=== PATIENT | female | born 1965 | race Caucasian/White ===

== ENCOUNTER 2018-03-08 16:52 | Inpatient (IN) | payer OTHER ==
[~2018-03-08] VITALS: Ht 115 cm; Wt 56.7 kg
--- NOTE | ~2018-03-08 | PROC ---
[address] [address] PROCEDURE REPORT Name: MARIA COHEN Room: [address] IN M.R.#: [id number] Admission: 03/08/18 Attend Phys: Mina Chase MD Discharge: Date of : 61 Report #: [id number] THIS REPORT FOR: //name// For GI report, please see the Provation report in Perceptive 7 content. By: 0646Medical Records Staff JOE /FABIOLA
[2018-03-08 17:11] VITALS: BP 201/143
--- NOTE | 2018-03-08 17:19 | NUR ---
PT STATES SHE CAN NOT URINATE AT THIS TIME DUE TO NOT HAVING DRANK ANYTHING FOR AWHILE
[2018-03-08 17:33] LABS: ABSOLUTE BASOPHILS 0.1 thou/uL (0.0-0.2); ABSOLUTE EOSINOPHILS 0.1 thou/uL (0.0-0.7); ABSOLUTE LYMPHOCYTES 1.6 thou/uL (0.8-5.3); ABSOLUTE MONOCYTES 0.8 thou/uL (0.0-1.2); ABSOLUTE NEUTROPHILS 10.6 thou/uL (1.6-8.1); BASOPHILS 0.6 %; EOSINOPHILS 0.7 %; HEMOGLOBIN 15.2 gm/dL (12.0-15.0); LYMPHOCYTES 12.2 %; MCH 29.3 pg (26.0-34.0); MCHC 33.8 g/dL (28.0-37.0); MCV 86.7 fL (80.0-100.0); MONOCYTES 5.8 %; MPV 7.6 fl. (7.2-11.1); NUCLEATED RBCS 0 /100WBC; PLATELET COUNT* 434 thou/uL (150-400); POLYS 80.7 %; RBC 5.19 mil/uL (4.20-5.00); WBC 13.1 thou/uL (4.0-11.0)
[2018-03-08 17:41] LABS: CREATININE 0.8 mg/dL (0.6-1.3); POTASSIUM 3.8 mmol/L (3.5-5.1)
[2018-03-08 17:45] LABS: ALBUMIN 3.3 g/dL (3.4-5.0); TOTAL BILIRUBIN 0.3 mg/dL (<0.1-1.0); TOTAL PROTEIN 7.9 g/dL (6.4-8.2)
[2018-03-08 19:02] LABS: URINE BILIRUBIN NEGATIVE (Negative); URINE BLOOD 1+ (Negative); URINE CLARITY CLEAR; URINE COLOR ORANGE; URINE GLUCOSE-RANDOM NEGATIVE (Negative); URINE KETONES NEGATIVE (Negative); URINE LEUKOCYTES-REFLEX NEGATIVE (Negative); URINE NITRITE-REFLEX NEGATIVE (Negative); URINE PROTEIN 2+ (Negative); URINE UROBILINOGEN 0.2 E.U./dl (0.2-1.0)
[2018-03-08 19:13] LABS: SQUAMOUS 4-10 Moderate /LPF (0-3)
[2018-03-08 19:14] LABS: BACTERIA-REFLEX None Seen /HPF (None Seen); MUCUS 0-3 Light strn/LPF (None Seen); URINE RBC 3-10 Few /HPF (0-2); URINE WBC-REFLEX 0-5 Rare /HPF (0-5)
[2018-03-08 19:15] LABS: CRYSTALS None Seen /LPF (None Seen); HYALINE CASTS 0-3 Few /LPF (None Seen)
[2018-03-08 20:10] LABS: AMP/METHAMP POSITIVE (Negative); BARBITURATES Negative (Negative); BENZODIAZEPINES Negative (Negative); COCAINE Negative (Negative); METHADONE Negative (Negative); OPIATES POSITIVE (Negative); PCP Negative (Negative); THC Negative (Negative)
[2018-03-08 20:47] VITALS: BP 186/119
[2018-03-09] VITALS (9 sets, daily range): BP systolic 127–151; BP diastolic 73–102
--- NOTE | 2018-03-09 03:55 | NUR ---
Patient rested in bed. No acute changes, patient did not show signs of distess. Patient did not complain of nausea or vomiting. GI to see patient, patient had high blood pressure. Doctor notified, prn med given, blood pressure return to with in normal limits. Call light with in reach, bed alarm on, fall precautions in place, hourly rounding observed.
[2018-03-09 04:56] LABS: ABSOLUTE EOSINOPHILS 0.2 thou/uL (0.0-0.7); ABSOLUTE LYMPHOCYTES 2.5 thou/uL (0.8-5.3); ABSOLUTE MONOCYTES 0.8 thou/uL (0.0-1.2); ABSOLUTE NEUTROPHILS 5.7 thou/uL (1.6-8.1); BASOPHILS 0.5 %; HEMATOCRIT 37.9 % (37.0-47.0); MCH 28.9 pg (26.0-34.0); MCHC 32.8 g/dL (28.0-37.0); MCV 88.1 fL (80.0-100.0); MONOCYTES 8.8 %; MPV 7.8 fl. (7.2-11.1); NUCLEATED RBCS 0 /100WBC; PLATELET COUNT* 368 thou/uL (150-400); POLYS 61.7 %; RDW-CV 13.1 % (10.5-14.5); WBC 9.2 thou/uL (4.0-11.0)
[2018-03-09 05:03] LABS: HEMOGLOBIN 12.4 gm/dL (12.0-15.0)
[2018-03-09 05:15] LABS: CALCIUM 8.6 mg/dL (8.5-10.1); CREATININE 0.7 mg/dL (0.6-1.3); POTASSIUM 4.2 mmol/L (3.5-5.1)
--- NOTE | 2018-03-09 08:20 | NUR ---
ASSUMED PT CARE AT 07, FULL ASSESMENT DONE CHARTED. PT A/O X4, C/O ABDOMINAL PAIN, REVIEWED WITH PT WHEN SHE CAN HAVE PRN MEDS. PTS BP ELEVATED, HYDRALAZINE GIVEN. PT STATES IN DEC SHE WAS PUT ON BP MEDS BUT STOPPED TAKING THEM WHEN SHE RAN OUT. PT STATES SHE HAS NOT HAD A BM IN "A LONG TIME". SHE REPORTS LOSS OF APITITE AND WEIGHT. WAITING ON GI CONSULT, PT ON CLEAR LIQUID DIET. PT USES CALL LIGHT APPROPRIALTY. FALL PRECATUIONS IN PLACE. WILL CONTINUE WITH PLAN OF CARE.
--- NOTE | 2018-03-09 16:59 | NUR ---
CM SPOKE TO THE PATIENT TO DISCUSS HOME SITUATION, DISCHARGE PLANNING, AND WHERE TO CALL REPORT. PATIENT ALERT, ORIENTED, AND INDEPENDENT WITH ADL'S. PATIENT USES 0 DME. PATIENT DOES NOT CURRENTLY HAVE INSURANCE. CM PROVIDED PATIENT WITH A COMMUNITY RESOURCE LIST, SAFETY NET CLINIC LIST, AND A PRESCRIPTION ASSISTANCE CARD. CM WILL REMAIN AVAILABLE TO ASSIST AND FOLLOW NEEDED.
--- NOTE | 2018-03-09 23:09 | NUR ---
REPORT GIVEN TO EHSAN. PATIENT TRANFER OFF FLOOR. NO ACUTE CHANGES, PATIENT DID NOT SHOW SIGNS OF DISTRESS.
--- NOTE | 2018-03-09 23:19 | NUR ---
PATIENT TRANSFERRED FROM TELE TO ROOM 106 IN STABLE CONDITION AT 2245. ALERT AND ORIENTED X4. DENIES ANY NEEDS AT THIS TIME. IVF INFUSING. AGREE WITH PREVIOUS RN REASSESSMENT OF PATIENT. VITALS STABLE. CONTINUE TO MONITOR.
[2018-03-10 04:47] LABS: ABSOLUTE BASOPHILS 0.1 thou/uL (0.0-0.2); ABSOLUTE EOSINOPHILS 0.2 thou/uL (0.0-0.7); ABSOLUTE LYMPHOCYTES 2.5 thou/uL (0.8-5.3); ABSOLUTE MONOCYTES 0.6 thou/uL (0.0-1.2); ABSOLUTE NEUTROPHILS 3.2 thou/uL (1.6-8.1); EOSINOPHILS 3.4 %; HEMATOCRIT 34.6 % (37.0-47.0); HEMOGLOBIN 11.3 gm/dL (12.0-15.0); LYMPHOCYTES 37.5 %; MCH 28.9 pg (26.0-34.0); MCHC 32.8 g/dL (28.0-37.0); MONOCYTES 8.6 %; MPV 7.9 fl. (7.2-11.1); NUCLEATED RBCS 0 /100WBC; POLYS 49.5 %; RBC 3.93 mil/uL (4.20-5.00); RDW-CV 13.2 % (10.5-14.5); WBC 6.6 thou/uL (4.0-11.0)
[2018-03-10 04:59] LABS: PLATELET COUNT* 290 thou/uL (150-400)
[2018-03-10 05:03] LABS: ALBUMIN 2.2 g/dL (3.4-5.0); CALCIUM 8.6 mg/dL (8.5-10.1); CREATININE 0.7 mg/dL (0.6-1.3); POTASSIUM 4.2 mmol/L (3.5-5.1); TOTAL BILIRUBIN 0.2 mg/dL (<0.1-1.0); TOTAL PROTEIN 5.4 g/dL (6.4-8.2)
--- NOTE | 2018-03-10 05:47 | NUR ---
PATIENT ALERT AND ORIENTED X4. DENIED NEED FOR PAIN MEDICATION. TOLERATING DIET. UP AD SHAYLA. VITALS STABLE. WILL CONTINUE TO MONITOR.
[2018-03-10 08:40] VITALS: BP 194/115
--- NOTE | 2018-03-10 13:17 | S ---
[place] [address] SURGICAL PATH RPT PROCEDURE Name: MARIA COHEN Room: [address] IN M.R.#: [id number] Admission: 03/08/18 Date of : 61 Discharge: Report #: [id number] Path Case #: [id number] PATHOLOGY REPORT COLLECTION DATE: 03/09/2018 RECEIVED DATE: 03/09/2018 SUBMITTING PHYS: Dr. Silas Villavicencio OTHER PHYS: Dr. Mina Chase SPECIMEN(S) RECEIVED: A.Biopsy duodenal ulcer B.Biopsy gastric ulcer * * * * * * * * * * * * FINAL DIAGNOSIS: A. Biopsy duodenal ulcer: - Moderate nonspecific active duodenitis, negative for granulomas and dysplasia/adenomatous change. - Fragment of benign gastric antral type mucosa with moderate acute and chronic inflammation suggesting reactive gastropathy (chemical gastritis), with intestinal metaplasia, negative for granulomas and dysplasia. B. Biopsy gastric ulcer: - Mild chronic and active gastritis typical of reactive gastropathy (chemical gastritis), negative for Helicobacter pylori organisms, granulomas, and dysplasia. (PANKAJ:pit; 03/10/2018) COMMENT: Special stain on B: H. pylori immuno PATHOLOGIST: Gato Us M.D. REPORT ELECTRONICALLY SIGNED BY: Gato Us M.D. DATE/TIME: 03/10/2018 13:16 * * * * * * * * * * * * GROSS PATHOLOGY: A. The specimen is received in formalin, labeled "Cohen, Maria and biopsy duodenal ulcer", are several hurley soft tissues ranging from 0.1 up to 0.4 cm in greatest dimension and measuring 0.5 x 0.4 x 0.1 cm in aggregate. The specimen is entirely submitted in A1. B. The specimen is received in formalin, labeled "Cohen, Maria and biopsy gastric ulcer", are three hurley soft tissue fragments 0.4 cm in greatest dimension each, entirely submitted in B1. (SWS; 03/09/2018) [place] [address] SURGICAL PATH RPT PROCEDURE Name: MARIA COHEN Phil Room: [address] IN .R.#: [id number] Admission: 03/08/18 Date of : 61 Discharge: Report #: [id number] Path Case #: [id number] CLINICAL HISTORY: None provided INITIAL CPT CODE(S): A; 82749 B; 42009, 51325 Professional services performed by [facility] at [facility] [address] [place] [address] Technical services performed by [facility] at [address] [place] [address], [facility] [address], [place] [address]. [facility] [place] [address] PHONE: [phone] DIRECTOR: Jacobo Son M.D. * * * END OF REPORT * * *
--- NOTE | 2018-03-10 19:33 | NUR ---
PATIENT REMAINED ALERT AND ORIENTED X'S 4. VITAL SIGNS AND SPO2 STABLE. IV CLEAN, FLUSHING FLUIDS. PAIN WELL CONTROLLED WITH PAIN MEDS. WALKED THE HALLS. TOLERATED DIET, NO NAUSEA AND VOMITING. COMPLETED HOURLY ROUNDING. CALL LIGHT WITHIN REACH. WILL CONTINUE TO MONITOR.
[2018-03-10 20:00] VITALS: BP 152/88
[2018-03-11 04:07] LABS: HEMATOCRIT 36.1 % (37.0-47.0); HEMOGLOBIN 12.1 gm/dL (12.0-15.0); MCH 28.9 pg (26.0-34.0); MCHC 33.5 g/dL (28.0-37.0); MCV 86.3 fL (80.0-100.0); MPV 7.8 fl. (7.2-11.1); RBC 4.19 mil/uL (4.20-5.00)
--- NOTE | 2018-03-11 04:28 | NUR ---
PATIENT ORIENTED X4 ON HOURLY ROUNDS. PAIN CONTROLLED WITH HYDROCODONE AND MORPHINE. UP AD SHAYLA. VITALS STABLE ON ROOM AIR. TOLERATING DIET. DENIES NAUSEA. CONTINUE TO MONITOR.
[2018-03-11 04:30] LABS: ALBUMIN 2.4 g/dL (3.4-5.0); CALCIUM 8.6 mg/dL (8.5-10.1); CREATININE 0.9 mg/dL (0.6-1.3); MAGNESIUM 1.7 mg/dL (1.8-2.4); POTASSIUM 4.3 mmol/L (3.5-5.1); TOTAL BILIRUBIN 0.1 mg/dL (<0.1-1.0); TOTAL PROTEIN 5.9 g/dL (6.4-8.2)
[2018-03-11 11:15] VITALS: BP 174/98
[2018-03-11 12:00] VITALS: BP 174/98
--- NOTE | 2018-03-11 12:04 | NUR ---
PT ARRIVED TO THE FLOOR AT APPROXIMATELY 1115. PT IS A&O X4 CALM AND COOPERATIVE. SHE IS TRACING NSR ON THE MONITOR WITH RATES IN THE LOW 80'S. PT ORIENTED TO UNIT AND SERVICES AND FOOD AND DRINK WERE OFFERES. PT BP STABLE AT THIS TIME. NURSING WILL CONTINUE TO MONITOR.
[2018-03-11 15:20] VITALS: BP 139/79
[2018-03-11 16:03] LABS: AMP/METHAMP POSITIVE (Negative); BARBITURATES Negative (Negative); BENZODIAZEPINES Negative (Negative); COCAINE Negative (Negative); METHADONE Negative (Negative); OPIATES POSITIVE (Negative); PCP Negative (Negative); THC Negative (Negative)
--- NOTE | 2018-03-11 17:31 | NUR ---
NURSE TOOK MORNING VITAL SIGNS AND GAVE MORNING MEDS INCLUDING SCHEDULE HYDROXYZINE. THEN NURSE WENT INTO ANOTHER PATIENT ROOM AND PATIENT LEFT UNIT WITHOUT LETTING STAFF KNOW SHE WAS LEAVING. SOMETIME LATER PATIENT CAME BACK ONTO UNIT AND TOLD NURSE TO CHECK BP BECAUSE IT FELT LIKE IT WAS HIGH. BP WAS HIGHER WHEN PATIENT ARRIVED BACK THEN DURING MORNING VITALS. NURSE GAVE ANOTHER DOSE OF HYDROXYZINE AND ICE PACK AND TOLD PATIENT TO LAY DOWN AND REST. BP DROPPED A LITTLE AND WENT RIGHT BACK UP. BP FLUCTUATED BETWEEN 230'S/130'S TO HIGH 160'S/100'S. NURSE ASKED PATIENT IF SHE SMOKED OR TOOK ANYTHING WHILE OFF THE UNIT, PATIENT DENIED USING ANYTHING. PATIENT THEN TRANSFERRED TO [facility] TO BE PLACED ON HEART MONITOR. NURSE GAVE REPORT TO ELVIS. ALL BELONGINGS TRANSFERRED WITH PATIENT.
--- NOTE | 2018-03-11 18:32 | NUR ---
PT CONTINUES TO BE STABLE ON ROOM AIR. C/O ABD PAIN HAVE BEEN EFFECTIVELY CONTROLLED WITH PRN MEDICATIONS PER JAN. PT BP WNL. SHE CONTINUES TO REMAIN IN A NSR AND HAS NIRALI AMBULATING IN HER ROOM. IV IN LEF FOREARM FLUSHING WITHOUT RESISTANCE. NURSING WILL CONTINUE TO MONITOR.
[2018-03-11 20:00] VITALS: BP 146/85
[2018-03-11 23:47] VITALS: BP 159/62; BP 159/95
[2018-03-12 04:00] VITALS: BP 158/89
--- NOTE | 2018-03-12 07:34 | NUR ---
PATIENT REMAINS STABLE THROUGHOUT SHIFT AND PROGRESSING TOWARDS GOALS: BP MAINTAIN WNL WITH NO PRN BP MEDS GIVEN. PATIENT HAS CONTINUOUS C/O PAIN IN ABD UNRELIEVED WITH PRN MEDICATION. PATIENT ENCOURAGED TO REPOSITION AND USE RELAXATION TECHNIQUES. PATIENT STATES "NOTHING HELPS." PATIENT REMAINS ON ROOM AIR WITH O2 SATS >92%. VSS. OUTSIDE COLLECTOR IN PLACE TRACING SB. HOURLY ROUNDING OBSERVED. CALL LIGHT WITHIN REACH
[2018-03-12 08:08] VITALS: BP 211/105
[2018-03-12 11:32] VITALS: BP 140/74
--- NOTE | 2018-03-12 11:48 | NUR ---
ASSUMED CARE OF PT AT 0700. PT CONTINUES TO BE A&O X4 CALM AND COOPERATIVE. PT C/O ABD PAIN HAVE BEEN CONTROLLED WITH PRN PAIN MEDICATIONS. PT BP WAS ELEVATED THIS MORNING, PRN HYDRALAZINE IV PUSH GIVEN AND PT BP RETURNED TO WNL. PT CURRENTLY RESTING IN BED WITH HOB ELEVATED TO 85 DEGREES, WATCHING TV. NURSING WILL CONTINUE TO MONITOR.
[2018-03-12 15:27] VITALS: BP 137/78
--- NOTE | 2018-03-12 18:38 | NUR ---
PT CONTIUES TO BE STABLE AND VS WNL. PT C/OPAIN CONTROLLED WITH PRN PAIN MEDS PER JAN. PT CURRENTLY RESTING IN BED WATCHING TV, URINE SAMPLE SENT TO LAB PER MD ORDERS. NURSING WILL CONTINUE TO MONITOR.
[2018-03-12 18:59] LABS: AMP/METHAMP POSITIVE (Negative); BARBITURATES Negative (Negative); BENZODIAZEPINES Negative (Negative); COCAINE Negative (Negative); METHADONE Negative (Negative); OPIATES POSITIVE (Negative); PCP Negative (Negative); THC Negative (Negative)
[2018-03-12 20:00] VITALS: BP 165/100
--- NOTE | 2018-03-12 20:00 | NUR ---
RECEIVED REPORT AND ASSUMED CARE OF PT, ASSESSMENT COMPLETED. PT C/O CONSTANT ABD PAIN ASKING IF IT IS CAUSED FROM HER BOWELS FINALLY MOVING IN 5 WEEKS. REASSURANCE GIVEN. TELEMETRY ON SHOWING SB. WILL CONT TO MONITOR AND ASSIST NEEDED.
[2018-03-13 00:04] VITALS: BP 168/96
[2018-03-13 04:14] VITALS: BP 171/95
--- NOTE | 2018-03-13 06:00 | NUR ---
SLEPT WELL MOST OF NIGHT. ONCE OBTAINED PAIN MEDS RETURNED TO SLEEP. TELEMETRY CONT TO SHOW SB. HS GOALS OF REST AND SAFETY ACHIEVED. HOURLY ROUNDING OBSERVED.
[2018-03-13 08:05] VITALS: BP 163/86
[2018-03-13] MEDS ORDERED: PROTONIX40 M1 PO (10:20)
[2018-03-13] MEDS ORDERED: COZAAR 50 MG TA50 M2 PO (10:21)
[2018-03-13] MEDS ORDERED: CARAFATE 1 GM TA1 G1 PO (10:21)
[2018-03-13 10:23] VITALS: BP 163/86
--- NOTE | 2018-03-13 10:54 | NUR ---
PT DISCHARGED HOME SELF CARE. PT VERBALIZED UNDERSTANDING OF DC INSTRUCTIONS THAT INCLUDED MEDICATION TEACHING AND FOLLOW UP CARE. PT PROVIDED WITH PRINTED MEDICATION INFORMATION WELL PRESCRIPTIONS FOR MEDICATIONS. IV AND RUG SETTER VELVET REMOVED PRIOR TO DISCHARGE. PT VS FOLLOWS BP 146/86, PULSE 79, RESP. 16, TEMP. 97.6, O2 SAT 97% ON ROOM AIR. PT SKIN WARM, DRY AND INTACT. ALLP ERSONAL BELONGINS TAKEN BY PT AT DISCHARGE.
--- NOTE | 2018-03-20 15:01 | CON ---
[address] [address] CONSULTATION Name: COHENMARIA J Room: [address] IN M.R.#: [id number] Admission: 03/08/18 Attend Phys: Mina Chase MD Discharge: 03/13/18 Date of : 61 Report #: [id number] THIS REPORT FOR: //name// CC: Mina Chase MD [facility] physician/PCP DATE OF SERVICE: 03/09/2018 REASON FOR CONSULTATION: Nausea, vomiting, abdominal pain and weight loss. REQUESTING PHYSICIAN: Mina Chase MD HISTORY OF PRESENT ILLNESS: This is a 52-year-old female with 5-week history of nausea, vomiting, severe abdominal pain. The patient reports that since the pain was getting worse and she continued to have weight loss, which totals almost 15 pounds since the beginning of this, she decided to come to the hospital. She also believes that since this has happened, she is more constipated. She denies any fever, chills, hematochezia or melena. PAST MEDICAL HISTORY: Significant for history of hysterectomy, back surgery, shoulder surgery and diverticulosis. ALLERGIES: SIGNIFICANT TO PENICILLIN AND CODEINE. MEDICATIONS: Please refer to hospital MAR. SOCIAL HISTORY: The patient denies any alcohol use, but smokes 1 pack of cigarettes per day. She lives at home. FAMILY HISTORY: Significant for lung CA in mother, but denies any GI malignancy in the family. PHYSICAL EXAMINATION: VITAL SIGNS: Reveals normal vitals. LUNGS: Clear. CARDIOVASCULAR: Regular. ABDOMEN: Soft, extremely tender to palpation in left upper quadrant. Bowel sounds are positive. LABORATORY DATA: Reveal sodium of 143, potassium 4.2, BUN is 12, creatinine 0.7, glucose 83, AST 21, ALT 21, alkaline phosphatase 139, total bilirubin is 0.3. WBC is 9.2 with hemoglobin of 12.4 and platelets of 368. UDS is positive for methamphetamine and opioids. IMAGING: CT of abdomen and pelvis was obtained, which [place] [id number] CONSULTATION Name: MARIA COHEN Room: [address] IN ..#: [id number] Admission: 03/08/18 Attend Phys: Mina Chase MD Discharge: 03/13/18 Date of : 61 Report #: [id number] in the distended stomach with thick walled irregular appearance along the stomach, antrum extending towards the duodenum. There are also some cystic changes in the kidney. There was no evidence of bowel obstruction. There was evidence of diverticulosis. ASSESSMENT AND PLAN: We will proceed with upper endoscopy to further evaluate the imaging findings and explain the patient's symptoms of nausea, vomiting and severe abdominal pain. We will rule out gastroduodenal ulcers. The patient also has never had a colonoscopy. At some point, she will need a colonoscopy, which we will recommend. <ELECTRONICALLY SIGNED> By: Silas Villavicencio MD 03/20/18 1501 [id number] Villavicencio MD /nt
== END 2018-03-13 10:53 | disposition home or self-care (01) | DRG 391 ==
LOC: M.ERS 16:52 → M.2W 18:54 → M.TBA-ER 18:54 → M.2W 20:35 → M.ORTHSURG 03-09 22:49 → M.2W 03-11 10:56
PROVIDERS: Family Medicine; Nurse Practitioner Family; ADMIT Internal Medicine
PROC: 0DB68ZX Excision of Stomach, Via Natural or Artificial Opening Endoscopic, Diagnostic (ICD-10-PCS; principal; 2018-03-09)
PROC: 0DB98ZX Excision of Duodenum, Via Natural or Artificial Opening Endoscopic, Diagnostic (ICD-10-PCS; principal; 2018-03-09)
DX: K29.70 Gastritis, unspecified, without bleeding (principal); E43 Unspecified severe protein-calorie malnutrition; Z68.41 Body mass index [BMI] 40.0-44.9, adult; E86.0 Dehydration; Z88.0 Allergy status to penicillin; K21.0 Gastro-esophageal reflux disease with esophagitis; K44.9 Diaphragmatic hernia without obstruction or gangrene; K25.9 Gastric ulcer, unspecified as acute or chronic, without hemorrhage or perforation; K26.9 Duodenal ulcer, unspecified as acute or chronic, without hemorrhage or perforation; I16.0 Hypertensive urgency; Z88.6 Allergy status to analgesic agent